=== PATIENT | female | born 1980 ===

== ENCOUNTER 2021-01-04 10:23 | Inpatient (IN) | payer SELFPAY ==
[~2021-01-04] VITALS: Ht 165.1 cm; Wt 85.8 kg
[2021-01-04 10:51] VITALS: BP 112/61
[2021-01-04] MEDS ORDERED: PRENTAB9 PO (11:04)
[2021-01-04] MEDS ORDERED: LACTATED RINGER'S 1000 ML IV STA (11:23)
[2021-01-04] MEDS ORDERED: LIDOCAINE 1% MDV 20ML VIAL INFIL PRN (11:25)
[2021-01-04] MEDS ORDERED: METHYLERGONOVINE MALEATE 0.2 MG/ML VIAL (J2210) IM PRN (11:25)
[2021-01-04] MEDS ORDERED: miSOPROStol 50MCG 1/2 TABLET SL ONE ×2 (11:25→15:45)
[2021-01-04] MEDS ORDERED: OXYTOCIN DRIP 30 UNITS in IV 1 EA IV PRN (11:25)
--- NOTE | 2021-01-04 12:05 | HPEPDOC ---
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 Reports "bleeding after last few deliveries" Surgical History: Denies/None Family History Significant Family History: No pertinent family hx Social History Marital Status: Family situation: Spouse/partner home Psychosocial History: No pertinent psych hx * Smoker: non-smoker Alcohol: Denies Drugs: denies Abuse Violence Screening Have you been hit/kicked/slapp: No Have you been sexually assault: No Allergies Coded Allergies: No Known Allergies (Unverified , 01/04/21) Medications Scheduled No.137/Iron/Folic Acd ( Vitamin Tablet) 1 Each Tablet, 1 TAB PO DAILY Physical Examination Physical Examination GENERAL: Alert and oriented times three. BREAST: . ABDOMEN: Gravid and non-tender to touch. FETUS: Is vertex (VTX) by sterile vaginal examination (SVE), fetus is vertex (VTX) by James. HEART RATE: Regular rate and rhythm. LUNGS: Clear to auscultation (CTA). EXTREMITIES: No edema. No clonus. Deep tendon reflexes (DTRs) + 2. Anatomy Ultrasound Ultrasound Date: Jan 02, 2021 Placenta Location: Other (IUFD EGA 35w6d, cephalic) Steroid Therapy Steroid Therapy: No Vaginal Examination Dilation: 1cm (-2) Effacement: 40% Station: -3 Cervical Consistency: Medium Cervical Position: Middle Presentation: Cephalic presentation Assessment Variability: Other (no cardiac activity) Tocometer Frequency: irregular (rare) Assessment/Plan Assessment Alycia is a 40-year-old (G)17 para (P)12-0-4-12 at 36+1 weeks by 35-week ultrasound. Presents to Labor and Delivery (L&D) for induction of labor due to demise. Pt and partner are Cong[employer]. Report no movement for a week. Presented to [facility] 01/02 where a sono confirmed demise, approximate EGA 35w6d. Pt reports going home and using herbs (Black/blue cohosh, cottonwood) and castor oil to induce labor without results. She is here now for induction and delivery. Parents have been counseled regarding TORCH testing and autopsy. Will consider and inform us of decisions. Plan Admit and orient. Cabin Agent and consent per consult Dr Tabares Diet: Regular Group B Streptococcus (GBS) unknown, prophylaxis not required due to demise Labs and intravenous (IV) per unit protocol. Counseled on misoprostol, Pitocin and induction of labor (IOL). Lactated Ringers (LR): Bolus 500 mL, then saline lock. Plans to labor ad agustín Anticipate normal spontaneous delivery (). C-S as appropriate Oma Ashton CNM Jan 04, 2021 12:05
[2021-01-04 12:19] LABS: BASO % 0.3 % (0.0-1.0); EOS # 0.1 10^3/uL (0.0-0.5); EOS % 1.9 % (0.0-3.0); HEMATOCRIT 36.3 % (36.0-47.0); HEMOGLOBIN 12.4 g/dl (12.0-15.5); LYMPH # 1.8 10^3/uL (1.5-5.0); LYMPH % 25.7 % (24.0-44.0); MEAN CORPUSCULAR HEMOGLOBIN 32.3 pg (27.0-33.0); MEAN CORPUSCULAR HGB CONC 34.2 g/dl (32.0-36.5); MEAN CORPUSCULAR VOLUME 94.5 fl (80.0-96.0); MONO # 0.5 10^3/uL (0.0-0.8); MONO % 7.8 % (2.0-8.0); NEUTROPHILS # 4.5 10^3/uL (1.5-8.5); NEUTROPHILS % 63.9 % (36.0-66.0); PLATELET COUNT, AUTOMATED 121 10^3/uL (150-450); RED BLOOD COUNT 3.84 10^6/uL (4.00-5.40)
[2021-01-04 12:28] LABS: INR 1.07; PARTIAL THROMBOPLASTIN TIME 25.3 SECONDS (24.2-38.5); PROTHROMBIN TIME 14.1 SECONDS (12.5-14.3)
[2021-01-04 12:37] LABS: AMORPHOUS SEDIMENT SMALL (NEGATIVE); APPEARANCE, URINE HAZY (CLEAR); BACTERIA, URINE AUTO NEGATIVE (NEGATIVE); BILIRUBIN, URINE AUTO NEGATIVE (NEGATIVE); BLOOD, URINE BLOOD NEGATIVE (NEGATIVE); COLOR, URINE YELLOW (YELLOW); GLUCOSE, URINE (UA) AUTO NEGATIVE (NEGATIVE); KETONE, URINE AUTO TRACE mg/dL (NEGATIVE); LEUKOCYTE ESTERASE, URINE AUTO NEGATIVE (NEGATIVE); NITRITE, URINE AUTO NEGATIVE (NEGATIVE); PROTEIN, URINE AUTO NEGATIVE (NEGATIVE); RBC, URINE AUTO 8 /HPF (0-3); SPECIFIC GRAVITY URINE AUTO 1.001 (1.002-1.035); SQUAMOUS EPITHELIAL CELL UR AU 0 /HPF (0-6); UROBILINOGEN, URINE AUTO 0.2 mg/dL (0.0-2.0); WBC, URINE AUTO 1 /HPF (0-3)
[2021-01-04 12:44] VITALS: BP 113/59
[2021-01-04 14:50] VITALS: BP 121/60
[2021-01-04] MEDS ORDERED: miSOPROStol 25MCG 1/4 TABLET SL ONE (15:45)
[2021-01-04 17:42] VITALS: BP 116/65
[2021-01-04] MEDS ORDERED: miSOPROStol 100MCG TABLET SL ONE (20:15)
--- NOTE | 2021-01-04 20:17 | IPNPDOC ---
Text Note Date of Service The patient was seen on 01/04/21. NOTE Progress Reports cramping intermittently. Denies bloody show SVE 2/80/-2. AROM moderate amount clear odorless fluid Increase misoprostol to 100mcg per Dr Tabares. VS,Fishbone, I+O VS, Fishbone, I+O Laboratory Tests 01/04/21 11:55 Vital Signs Date Time Temp Pulse Resp B/P (MAP) Pulse Ox O2 Delivery O2 Flow Rate FiO2 01/04/21 17:42 97.3 78 116/65 (82) 01/04/21 14:50 16 Oma Ashton CNM Jan 04, 2021 20:17
[2021-01-05] MEDS ORDERED: miSOPROStol 100MCG TABLET SL ONE (00:25)
[2021-01-05] MEDS ORDERED: IBUPROFEN 800 MG TAB PO PRN (04:10)
[2021-01-05] MEDS ORDERED: ANUSOL HC CREAM 30GM TOP PRN (04:10)
[2021-01-05] MEDS ORDERED: IBUPROFEN 600MG TAB PO PRN (04:10)
[2021-01-05] MEDS ORDERED: ACETAMINOPHEN 500 MG TAB PO PRN (04:10)
[2021-01-05] MEDS ORDERED: OXYTOCIN DRIP 30 UNITS in IV 1 EA IV SCH (04:10)
[2021-01-05] MEDS ORDERED: METHYLERGONOVINE MALEATE 0.2 MG TAB PO PRN (04:10)
[2021-01-05] MEDS ORDERED: MOM 30ML SUSPENSION UDC PO PRN (04:10)
[2021-01-05] MEDS ORDERED: RHOGAM 300 MCG (1500 IU) INJ (J2790) IM SCH (04:10)
[2021-01-05] MEDS ORDERED: DOCUSATE SODIUM 100MG CAPSULE PO PRN (04:10)
[2021-01-05] MEDS ORDERED: ACETAMINOPHEN TAB 650MG DOSE (2X325MG) PO PRN (04:10)
[2021-01-05] MEDS ORDERED: DIBUCAINE 1% OINTMENT 30GM TOP PRN (04:10)
[2021-01-05] MEDS ORDERED: MEASLES,MUMPS,RUBELLA VACCINE INJ (MMR-II) (90707) SC SCH (04:10)
--- NOTE | 2021-01-05 04:35 | DNPDOC ---
[facility] Delivery Note Delivery Note DATE OF DELIVERY: 01/05/2021 PREDELIVERY DIAGNOSIS: 36+2/7 weeks' gestation and labor. POST DELIVERY DIAGNOSIS: Delivered. PROCEDURE: Spontaneous vaginal delivery, demise. PROVIDER: Oma Ashton CNM ANESTHESIA: None ESTIMATED BLOOD LOSS: 150 mL. FINDINGS: Late /early term male infant, demise. Skin sloughing, and macerated. DELIVERY SUMMARY: Patient is a 40-year-old 17 now para 12-1-4-12 who was admitted to labor and delivery for induction of labor of know demise. 4 doses of misoprostol were given. AROM small amount clear odorless fluid 1942. She labored physiologically. Nonviable male infant delivered 0323. To maternal abdomen. Cord clamped and cut. Placenta george, intact with 3v cord. Fundus firmed with massage, IV bolus premixed pitocin solution and misoprostol 1000mcg WI. EBL 150ml. Perineum intact. Sponge, sharp and instrument count correct. Autopsy and TORCH testing offered, declined by family. Oma Ashton CNM January 05, 2021 04:35
[2021-01-05] MEDS ORDERED: PRENATAL VITAMINS CHEWABLE TABLET PO SCH (09:00)
== END 2021-01-05 09:50 | disposition home or self-care (01) | DRG 560 ==
LOC: M LDO 10:23 → M LDI 10:46
PROVIDERS: ADMIT Advanced Practice Midwife; ATTEND Advanced Practice Midwife
PROC: 3E0DXGC Introduction of Other Therapeutic Substance into Mouth and Pharynx, External Approach (ICD-10-PCS; 2021-01-04)
PROC: 10E0XZZ Delivery of Products of Conception, External Approach (ICD-10-PCS; principal; 2021-01-05)
PROC: 10907ZC Drainage of Amniotic Fluid, Therapeutic from Products of Conception, Via Natural or Artificial Opening (ICD-10-PCS; 2021-01-05)
DX: O36.4XX0 Maternal care for intrauterine death, not applicable or unspecified (principal); Z37.1 Single stillbirth; O09.523 Supervision of elderly multigravida, third trimester; Z3A.36 36 weeks gestation of pregnancy